=== PATIENT | female | born 1975 | race Two or more races ===

== ENCOUNTER 2019-10-28 15:40 | Emergency (ER) | payer OTHER ==
[~2019-10-28] VITALS: Ht 172.7 cm; Wt 81.6 kg
[~2019-10-28 15:40] MED LIST: HALO10TA18
[2019-10-28 16:04] VITALS: BP 131/82
== END 2019-10-28 17:00 | disposition home or self-care (01) ==
LOC: ER 15:40
DX: J06.9 Acute upper respiratory infection, unspecified (principal); R42 Dizziness and giddiness; J45.909 Unspecified asthma, uncomplicated
CPT/HCPCS: 71046

== ENCOUNTER 2019-12-12 12:02 | Emergency (ER) | payer OTHER ==
[~2019-12-12] VITALS: Ht 172.7 cm; Wt 81.6 kg
[2019-12-12] MEDS ORDERED: ASPirin 81 mg TAB PO ONE (12:30)
[2019-12-12 13:05] LABS: Urine Bacteria FEW /hpf (None Seen); Urine Blood Negative /uL (Negative); Urine Specific Gravity 1.004 (1.001-1.035); Urine WBC 9 /hpf (0 - 5)
[2019-12-12 13:20] LABS: Alcohol, Urine < 3.0 mg/dL (0-5); Amphetamine Screen, Urine POSITIVE (NEGATIVE); Barbiturate Scree,Urine NEGATIVE (NEGATIVE); Benzodiazephine Screen, Urine NEGATIVE (NEGATIVE); Cannabinoid Screen, Urine NEGATIVE (NEGATIVE); Cocaine Screen, Urine NEGATIVE (NEGATIVE); Opiate Scree,Urine NEGATIVE (NEGATIVE)
[2019-12-12 13:28] LABS: Phencyclidine Screen, Urine NEGATIVE (NEGATIVE)
[2019-12-12 13:41] LABS: Basophils # (auto) 0 uL; Basophils % (auto) 0.5 % (0.0-2.0); Eosinophils # (auto) 0.1 uL; Hematocrit 40.3 % (36.0-46.0); Hemoglobin 13.8 g/dL (12.2-16.2); Lymphocytes # (auto) 1.1 uL; Mean Corpuscular Hemoglobin 30.3 pg (28.0-32.0); Mean Corpuscular Hgb Conc. 34.3 g/dL (32.0-36.0); Mean Corpuscular Volume 88.4 fL (80.0-100.0); Monocytes # (auto) 0.4 uL; Monocytes % (auto) 6.4 % (0.0-12.0); Neutrophils # (auto) 4.5 uL; Neutrophils % (auto) 74.1 % (37.0-80.0); Platelet Count (auto) 289 10^3/uL (140-450); Red Blood Cells 4.57 10^6/uL (4.0-5.20); Red Cell Distribution Width 13.3 % (11.8-14.3)
[2019-12-12 13:57] LABS: Albumin 3.7 g/dL (3.4-5.0); Calcium 9.1 mg/dL (8.5-10.1); Magnesium 2.2 mg/dL (1.6-2.6); Potassium 3.7 mmol/L (3.5-5.1)
[2019-12-12 14:00] LABS: BUN/Creatinine Ratio 7.8; Bilirubin, Total 0.6 mg/dL (0.2-1.0); Total Protein 7.6 g/dL (6.4-8.2)
[2019-12-12 16:02] VITALS: BP 136/89
== END 2019-12-12 16:04 | disposition home or self-care (01) ==
LOC: ER 12:02
DX: R07.89 Other chest pain (principal); N39.0 Urinary tract infection, site not specified; F15.10 Other stimulant abuse, uncomplicated; F17.210 Nicotine dependence, cigarettes, uncomplicated; F12.10 Cannabis abuse, uncomplicated; J45.909 Unspecified asthma, uncomplicated
CPT/HCPCS: 36415; 71046; 80053; 80307; 81001; 83735; 84484; 85025; 93005